=== PATIENT | female | born 1975 | race Caucasian/White ===

== ENCOUNTER 2017-01-23 09:17 | Day surgery (SDC) | payer OTHER ==
[~2017-01-23] VITALS: Ht 162.6 cm; Wt 92.0 kg
[~2017-01-23 09:17] MED LIST: ALBUTEROL17 G1 IH; ALBUTEROL17 GM IH; ASPIR 8181 M1 PO; CALCIUM 500 MG1 EACH PO; CALCIUM500 M4 PO; EPIPEN ADU0.3 MG/0.3 IM; FISH OIL 1,2001 EAC4 PO; Fioricet,Esgic,Repan PO; Flexeril PO; GLUCOPHAGE500 MG PO; Glucophage PO; Halfprin PO; LEXAPRO10 MG PO; LEXAPRO20 MG PO; MAXALT10 MG PO; MILK THISTLE175 M1 PO; MULTI-VITAMIN-1 EACH PO; Milk Thistle PO; NOVOLOG PE100 UNITS/ SC; PRINIVIL20 MG PO; SINGULAIR10 MG PO; VENTOLIN HFA18 GM IH; VITAMIN D-32000 UNI2 PO; XANAX0.25 MG PO; ZYRTEC10 M2 PO; Zestril,Prinivil PO; Zocor PO
[2017-01-23 09:46] VITALS: BP 144/90
[2017-01-23] MEDS ORDERED: HYDROCODON-ACE1 EAC7 PO (13:20)
[2017-01-23 14:20] VITALS: BP 133/77
[2017-01-23 15:09] VITALS: BP 123/62
== END 2017-01-23 15:16 | disposition home or self-care (01) ==
LOC: SDC 09:17
PROC: 0UT74ZZ Resection of Bilateral Fallopian Tubes, Percutaneous Endoscopic Approach (ICD-10-PCS; principal; 2017-01-23)
DX: Z30.2 Encounter for sterilization (principal); N83.8 Other noninflammatory disorders of ovary, fallopian tube and broad ligament; E28.2 Polycystic ovarian syndrome; I10 Essential (primary) hypertension; E11.9 Type 2 diabetes mellitus without complications; J45.30 Mild persistent asthma, uncomplicated; Z83.3 Family history of diabetes mellitus; Z82.49 Family history of ischemic heart disease and other diseases of the circulatory system
CPT/HCPCS: 88302; J0330; J0690; J1100; J1885; J2250; J2405; J3010